=== PATIENT | male | born 1995 | race Caucasian/White ===

== ENCOUNTER 2017-06-20 16:35 | Emergency (ER) | payer BC ==
[~2017-06-20] VITALS: Ht 177.8 cm; Wt 72.7 kg
[2017-06-20 16:48] VITALS: BP 113/55; TEMP 97.9
[2017-06-20 18:40] VITALS: PULSE 83
== END 2017-06-20 18:40 | disposition home or self-care (01) ==
LOC: COL.ER 16:35
DX: S06.0X9A Concussion with loss of consciousness of unspecified duration, initial encounter (principal); S20.212A Contusion of left front wall of thorax, initial encounter; S40.012A Contusion of left shoulder, initial encounter; V86.56XA Driver of dirt bike or motor/cross bike injured in nontraffic accident, initial encounter; Y92.410 Unspecified street and highway as the place of occurrence of the external cause
CPT/HCPCS: A9284